=== PATIENT | male | born 1990 | race Caucasian/White ===

== ENCOUNTER 2025-05-15 12:51 | Emergency (ER) | payer OTHER ==
[~2025-05-15] VITALS: Ht 172.7 cm; Wt 81.6 kg
[2025-05-15 13:06] VITALS: BP 125/79; TEMP 98.1; O2SAT 99
[2025-05-15] MEDS ORDERED: OFLO5DRO6 EACHEYE (14:18)
== END 2025-05-15 14:22 | disposition home or self-care (01) ==
LOC: ER 13:00
DX: H57.13 Ocular pain, bilateral (principal)